=== PATIENT | female | born 1985 | race African-American/Black ===

== ENCOUNTER 2024-02-27 13:19 | Emergency (ER) | payer MEDICAID ==
[~2024-02-27] VITALS: Ht 180.3 cm; Wt 59.0 kg
[2024-02-27 13:31] VITALS: O2SAT 100
[2024-02-27 15:15] LABS: BASOPHILS % 0.3 % (0.0-2.0); HEMATOCRIT. 30.9 % (36.0-48.0); HEMOGLOBIN. 10.1 g/dL (12.0-16.0); LYMPHOCYTES % 24.9 % (20.0-50.0); MEAN CORPUSCULAR HGB CONC 32.7 g/dL (31.0-37.0); MEAN CORPUSCULAR VOLUME 85.7 fL (81.0-99.0); MEAN PLATELET VOLUME 8.3 fl (7.4-10.4); MONOCYTES % 6.2 % (2.0-8.0); NEUTROPHILS % 67.6 % (40.0-76.0); PLATELET 267 x1000/uL (130-400); RED CELL DISTRIBUTION WIDTH 14.3 % (11.6-14.6); WHITE BLOOD COUNT 9.6 x1000/uL (4.5-11.0)
[2024-02-27 15:19] LABS: CHLORIDE 109 mEq/L (98-107); POTASSIUM 3.8 mEq/L (3.5-5.1); SODIUM 141 mEq/L (136-145)
[2024-02-27] MEDS: ACETAMINOPHEN 325MG TABLET PO ONE (15:19)
[2024-02-27 15:20] LABS: CARBON DIOXIDE 26 mEq/L (21-32)
[2024-02-27 15:21] LABS: CALCIUM 9.5 mg/dL (8.7-10.4)
[2024-02-27 15:25] LABS: CREATININE 0.7 mg/dL (0.6-1.0); GLUCOSE 67 mg/dL (70-105)
[2024-02-27 15:26] LABS: UREA NITROGEN BLOOD 11 mg/dL (9-23)
[2024-02-27] MEDS ORDERED: TOPUD MT (16:59)
[2024-02-27 17:05] VITALS: BP 104/70; PULSE 81; RESP 16; TEMP 36.83628; O2SAT 100
== END 2024-02-27 17:06 | disposition home or self-care (01) ==
LOC: ER 13:19
DX: O46.8X1 Other antepartum hemorrhage, first trimester (principal); Z3A.12 12 weeks gestation of pregnancy
CPT/HCPCS: 36415; 76801; 80048; 84702; 85025; 99291